=== PATIENT | female | born 1985 | race Caucasian/White ===

== ENCOUNTER 2023-12-15 11:48 | Emergency (ER) | payer OTHER ==
[~2023-12-15] VITALS: Ht 170.2 cm; Wt 64.9 kg
[2023-12-15 11:50] VITALS: BP 120/62; PULSE 67; RESP 16; TEMP 98.7; O2SAT 99
[2023-12-15] MEDS: ondansetron 4mg rapidly disintigrating tab PO ONE (12:46)
[2023-12-15] MEDS: DOXYCYCLINE 100MG CAPSULE PO STA (12:46)
[2023-12-15] MEDS: TETanus/Pertussis (Acell)/Diphther VAC/PF (Tdap-Adult) 0.5ml syringe IMVAC ONE (12:47)
[2023-12-15] MEDS ORDERED: DOXY-1 PO (12:49)
== END 2023-12-15 13:14 | disposition home or self-care (01) ==
LOC: ER 11:49
DX: A69.20 Lyme disease, unspecified (principal)
CPT/HCPCS: 90715; 99283